=== PATIENT | male | born 1980 | race Caucasian/White ===

== ENCOUNTER → 2020-12-09 | Outpatient (CLI) | payer BC ==
[~2020-12-09] MED LIST: BAMLANIVIMAB (EUA) 700 MG in NS 250ML 180 ML IV ONE
[2020-12-09 14:35] VITALS: BP 166/101
[2020-12-09 15:05] VITALS: BP 157/102
[2020-12-09 15:30] VITALS: BP 145/87
[2020-12-09 16:45] VITALS: BP 142/87
== END | disposition home or self-care (01) ==
LOC: OPTX 14:36
PROVIDERS: ATTEND Physician Assistant
DX: U07.1 COVID-19 (principal)
CPT/HCPCS: J7050; M0239; Q0239; 96365; 96366